=== PATIENT | male | born 1960 | race Caucasian/White ===

== ENCOUNTER 2023-10-02 12:00 | Inpatient (IN) | payer MEDICARE, MEDICAID ==
[~2023-10-02] VITALS: Ht 175.3 cm; Wt 85.4 kg
[2023-10-02 12:09] VITALS: BP_SYST 115; PULSE 99; RESP 17; TEMP 97.4; O2SAT 97
[2023-10-02] MEDS: ONDANSETRON 4 MG ODT TAB PO ONE (12:49)
[2023-10-02] MEDS: MORPHINE 2 MG/ML INJ. SYRINGE IM ONE (12:50)
[2023-10-02 13:32] LABS: BASOPHILS % (AUTO) 0.1 % (0.0-2.0); HEMATOCRIT 31.6 % (36-54); HEMOGLOBIN 9.2 g/dL (14.0-18.0); LYMPHOCYTES # (AUTO) 0.8 K/uL (1.0-5.5); LYMPHOCYTES % (AUTO) 3.9 % (20.5-51.5); MEAN CORPUSCULAR HEMOGLOBIN 19 pg (27-31); MEAN CORPUSCULAR HGB CONC 29 % (32-36); MEAN CORPUSCULAR VOLUME 66 fL (79.0-98.0); MONOCYTES # (AUTO) 0.9 K/uL (0.0-1.0); MONOCYTES % (AUTO) 4.5 % (1.7-9.3); NEUTROPHILS # (AUTO) 18.7 K/uL (1.8-7.7); NEUTROPHILS % (AUTO) 91.5 % (40.0-70.0); PLATELET COUNT (AUTO) 261 K/uL (130-430); RED BLOOD CELL COUNT(AUTO) 4.79 MIL/uL (4.2-6.2); RED CELL DISTRIBUTION WIDTH 21.2 % (9.0-15.0); WHITE BLOOD COUNT (AUTO) 20.5 K/uL (4.8-10.8)
[2023-10-02 13:45] LABS: ALANINE AMINOTRANSFERASE 22 U/L (12-78); ALBUMIN 4.2 g/dL (3.4-4.8); ANION GAP 12 (5-15); ASPARTATE AMINOTRANSFERASE 23 U/L (10-37); CALCIUM 9.2 mg/dL (8.4-11.0); CARBON DIOXIDE 24 mmol/L (23-29); CHLORIDE 105 mmol/L (98-107); CREATININE 0.79 mg/dL (0.55-1.30); GFR AFRICAN AMERICAN 127 mL/min (>90); GFR NON AFRICAN-AMERICAN 105 mL/min (>90); GLUCOSE 151 mg/dL (74-106); POTASSIUM 4.1 mmol/L (3.5-5.1); PROTHROMBIN TIME 10.7 SECS (9.5-12.5); SODIUM SERUM 141 mmol/L (136-145); TOTAL BILIRUBIN 0.9 mg/dL (0.0-1.0); TOTAL PROTEIN, SERUM 7.3 g/dL (6.4-8.3); UREA NITROGEN, BLOOD 21 mg/dL (8-21)
[2023-10-02 13:48] LABS: BILIRUBIN,DIRECT 0.2 mg/dL (0.0-0.3); CREATINE KINASE, TOTAL 86 U/L (39-308)
[2023-10-02 14:07] LABS: ANISOCYTOSIS 2+; HYPOCHROMASIA 1+; OVALOCYTES FEW
[2023-10-02] MEDS: cefTRIAXone 1 GM IVPB PREMIX 50 ML IV SCH (14:50)
[2023-10-02 15:06] LABS: BILIRUBIN,URINE NEGATIVE (NEGATIVE); BLOOD, URINE NEGATIVE (NEGATIVE); CLARITY/URINE CLEAR (CLEAR); COLOR,URINE YELLOW (YELLOW); GLUCOSE,URINE 3+ (NEGATIVE); KETONES,URINE 3+ (NEGATIVE); LEUKOCYTE ESTERASE ,URINE NEGATIVE (NEGATIVE); NITRITE, URINE NEGATIVE (NEGATIVE); PROTEIN URINE NEGATIVE (NEGATIVE); UROBILINOGEN,URINE 0.2 (0.2-1.0)
[2023-10-02] MEDS ORDERED: PRO40 PO (15:09)
[2023-10-02] MEDS ORDERED: METO25TA3 PO (15:09)
[2023-10-02] MEDS ORDERED: CLOP75TA32 PO (15:09)
[2023-10-02] MEDS ORDERED: METF-1069 PO (15:09)
[2023-10-02] MEDS ORDERED: LIP80 PO (15:09)
[2023-10-02] MEDS ORDERED: NEU300 PO (15:09)
[2023-10-02 15:40] LABS: BACTERIA,URINE RARE /HPF (None Seen); MUCUS,URINE None Seen /LPF (None Seen); RBC,URINE NONE SEEN /HPF (0-3); WBC,URINE 0-3 /HPF (0-3)
[2023-10-02 15:41] LABS: COARSE GRANULAR CASTS,URINE 0-10 /LPF (None Seen)
[2023-10-02 15:45] VITALS: BP_SYST 129; PULSE 81; RESP 16; TEMP 99.1
[2023-10-02] MEDS ORDERED: HYDROcodone/ACETAMIN 5-325 MG TAB (NORCO/ VICODIN) PO PRN (16:30)
[2023-10-02] MEDS ORDERED: INSULIN REGULAR, HUMAN 100 UNITS/ML, 3 ML VIAL (humuLIN R) SUBCUT PRN (16:30)
[2023-10-02] MEDS ORDERED: ACETAMINOPHEN 325 MG TABLET PO PRN ×2 (16:30→16:45)
[2023-10-02 17:12] VITALS: BP_SYST 128; PULSE 81; RESP 15; TEMP 99.1; O2SAT 98
[2023-10-02] MEDS: HYDROcodone/ACETAMIN 10-325 MG TAB PO PRN (17:24)
[2023-10-02] MEDS: PIPERACILLIN/TAZO 3.375 GM in D5W 50 ML IV ONE (17:36)
[2023-10-02 21:28] VITALS: BP_SYST 103; PULSE 87; RESP 18; TEMP 97.6; O2SAT 97
[2023-10-02] MEDS: MORPHINE 2 MG/ML INJ. SYRINGE IVP PRN (22:03)
[2023-10-03 00:08] VITALS: BP_SYST 122; PULSE 78; RESP 17; TEMP 98.2; O2SAT 96
[2023-10-03] MEDS: PIPERACILLIN/TAZO 3.375 GM in D5W 50 ML IV SCH (06:17)
[2023-10-03 08:01] VITALS: BP_SYST 124; PULSE 81; RESP 18; TEMP 98.3; O2SAT 99
[2023-10-03 08:05] VITALS: O2SAT 99
[2023-10-03 08:17] LABS: BASOPHILS % (AUTO) 0.4 % (0.0-2.0); EOSINOPHILS % (AUTO) 0.2 % (0.0-4.0); HEMATOCRIT 26.2 % (36-54); HEMOGLOBIN 7.8 g/dL (14.0-18.0); LYMPHOCYTES # (AUTO) 0.8 K/uL (1.0-5.5); LYMPHOCYTES % (AUTO) 8.4 % (20.5-51.5); MEAN CORPUSCULAR HEMOGLOBIN 20 pg (27-31); MEAN CORPUSCULAR HGB CONC 30 % (32-36); MEAN CORPUSCULAR VOLUME 66 fL (79.0-98.0); MONOCYTES # (AUTO) 0.8 K/uL (0.0-1.0); MONOCYTES % (AUTO) 8.5 % (1.7-9.3); NEUTROPHILS # (AUTO) 7.5 K/uL (1.8-7.7); NEUTROPHILS % (AUTO) 82.5 % (40.0-70.0); PLATELET COUNT (AUTO) 197 K/uL (130-430); RED BLOOD CELL COUNT(AUTO) 3.97 MIL/uL (4.2-6.2); WHITE BLOOD COUNT (AUTO) 9.1 K/uL (4.8-10.8)
[2023-10-03 08:19] LABS: RED CELL DISTRIBUTION WIDTH 21.3 % (9.0-15.0)
[2023-10-03] MEDS: GABAPENTIN 300 MG CAPSULE PO SCH (08:36)
[2023-10-03] MEDS: PANTOPRAZOLE SODIUM 40 MG TAB PO SCH (08:37)
[2023-10-03] MEDS: METOPROLOL SUCCINATE 25 MG TAB.SR.24H (TOPROL XL) PO SCH (08:37)
[2023-10-03] MEDS: CLOPIDOGREL BISULFATE 75 MG TABLET PO SCH (08:37)
[2023-10-03 09:01] LABS: ALBUMIN 3.6 g/dL (3.4-4.8); CALCIUM 8.6 mg/dL (8.4-11.0); CREATININE 0.62 mg/dL (0.55-1.30); PHOSPHORUS 3.1 mg/dL (2.7-4.5); POTASSIUM 3.8 mmol/L (3.5-5.1); TOTAL BILIRUBIN 0.8 mg/dL (0.0-1.0); TOTAL PROTEIN, SERUM 6.4 g/dL (6.4-8.3)
[2023-10-03 10:57] LABS: TOTAL IRON BIND. CAPACITY 371 ug/dL (250-450)
[2023-10-03 11:10] VITALS: BP_SYST 128; PULSE 84; RESP 18; TEMP 98.4; O2SAT 99
[2023-10-03] MEDS: LORATADINE 10 MG TABLET PO ONE (13:50)
[2023-10-03] MEDS: SOD FERRIC GLUC COMPLEX/SUC 125 MG in NS 100 ML IV SCH (14:48)
[2023-10-03 16:17] VITALS: BP_SYST 126; PULSE 80; RESP 18; TEMP 98.4; O2SAT 98
[2023-10-03 18:25] LABS: HEMATOCRIT 25.7 % (36-54)
[2023-10-03 20:00] VITALS: BP_SYST 119; PULSE 84; RESP 18; TEMP 98.4; O2SAT 94
[2023-10-03] MEDS: ATORVASTATIN 20 MG TABLET PO SCH (20:51)
[2023-10-03] MEDS: LORazepam 2 MG/ML VIAL IVP PRN (23:47)
[2023-10-04 00:13] VITALS: BP_SYST 116; PULSE 81; RESP 18; TEMP 97.9; O2SAT 93
[2023-10-04 06:24] LABS: BASOPHILS % (AUTO) 0.4 % (0.0-2.0); EOSINOPHILS # (AUTO) 0.1 K/uL (0.0-0.4); EOSINOPHILS % (AUTO) 1.1 % (0.0-4.0); HEMATOCRIT 25.4 % (36-54); HEMOGLOBIN 7.7 g/dL (14.0-18.0); LYMPHOCYTES % (AUTO) 11.8 % (20.5-51.5); MEAN CORPUSCULAR HEMOGLOBIN 20 pg (27-31); MEAN CORPUSCULAR HGB CONC 30 % (32-36); MEAN CORPUSCULAR VOLUME 66 fL (79.0-98.0); MONOCYTES % (AUTO) 11.3 % (1.7-9.3); NEUTROPHILS # (AUTO) 6.4 K/uL (1.8-7.7); NEUTROPHILS % (AUTO) 75.4 % (40.0-70.0); PLATELET COUNT (AUTO) 205 K/uL (130-430); RED BLOOD CELL COUNT(AUTO) 3.89 MIL/uL (4.2-6.2); RED CELL DISTRIBUTION WIDTH 20.6 % (9.0-15.0); WHITE BLOOD COUNT (AUTO) 8.5 K/uL (4.8-10.8)
[2023-10-04 06:55] LABS: ALBUMIN 3.5 g/dL (3.4-4.8); CALCIUM 8.6 mg/dL (8.4-11.0); CREATININE 0.63 mg/dL (0.55-1.30); POTASSIUM 3.3 mmol/L (3.5-5.1); TOTAL BILIRUBIN 0.7 mg/dL (0.0-1.0); TOTAL PROTEIN, SERUM 6.4 g/dL (6.4-8.3)
[2023-10-04 07:22] LABS: HEMOGLOBIN A1C 6.4 % (<5.7)
[2023-10-04 08:04] VITALS: O2SAT 98
[2023-10-04 08:05] VITALS: BP_SYST 127; PULSE 84; RESP 14; TEMP 97.9; O2SAT 97
[2023-10-04] MEDS: LORATADINE 10 MG TABLET PO SCH (08:19)
[2023-10-04 11:13] VITALS: BP_SYST 116; PULSE 83; RESP 16; TEMP 97.5; O2SAT 94
[2023-10-04] MEDS: MUPIROCIN 2% TOPICAL OINTMENT 22 GM TP ONE (11:37)
[2023-10-04] MEDS: MUPIROCIN 2% TOPICAL OINTMENT 22 GM TP SCH (14:38)
[2023-10-04 16:05] VITALS: BP_SYST 115; PULSE 80; RESP 16; TEMP 98; O2SAT 95
[2023-10-04 20:00] VITALS: O2SAT 95
[2023-10-04] MEDS ORDERED: MUPIROCIN 1 GM OIN.PF.APP NS SCH (21:00)
[2023-10-05 01:06] VITALS: BP_SYST 124; PULSE 85; RESP 18; TEMP 98.6; O2SAT 93
[2023-10-05 11:12] VITALS: BP_SYST 123; PULSE 89; RESP 16; TEMP 97.5
[2023-10-05 12:17] LABS: BASOPHILS % (AUTO) 0.5 % (0.0-2.0); EOSINOPHILS # (AUTO) 0.1 K/uL (0.0-0.4); EOSINOPHILS % (AUTO) 1.2 % (0.0-4.0); HEMATOCRIT 30.8 % (36-54); HEMOGLOBIN 9.2 g/dL (14.0-18.0); LYMPHOCYTES % (AUTO) 12.7 % (20.5-51.5); MEAN CORPUSCULAR HEMOGLOBIN 20 pg (27-31); MEAN CORPUSCULAR HGB CONC 30 % (32-36); MEAN CORPUSCULAR VOLUME 66 fL (79.0-98.0); MONOCYTES # (AUTO) 1.1 K/uL (0.0-1.0); MONOCYTES % (AUTO) 13.2 % (1.7-9.3); NEUTROPHILS # (AUTO) 5.8 K/uL (1.8-7.7); NEUTROPHILS % (AUTO) 72.4 % (40.0-70.0); PLATELET COUNT (AUTO) 278 K/uL (130-430); RED BLOOD CELL COUNT(AUTO) 4.65 MIL/uL (4.2-6.2); RED CELL DISTRIBUTION WIDTH 20.9 % (9.0-15.0); WHITE BLOOD COUNT (AUTO) 8.1 K/uL (4.8-10.8)
[2023-10-05 12:36] LABS: ALBUMIN 3.9 g/dL (3.4-4.8); CALCIUM 9.3 mg/dL (8.4-11.0); CREATININE 0.68 mg/dL (0.55-1.30); POTASSIUM 3.1 mmol/L (3.5-5.1); TOTAL BILIRUBIN 0.7 mg/dL (0.0-1.0); TOTAL PROTEIN, SERUM 7.4 g/dL (6.4-8.3)
[2023-10-05] MEDS: POTASSIUM CHLORIDE 20 MEQ TABLET.ER PO ONE (16:08)
[2023-10-05 16:59] VITALS: BP_SYST 116; PULSE 98; RESP 16; TEMP 98; O2SAT 97
[2023-10-05 19:30] VITALS: BP_SYST 115; PULSE 106; RESP 20; TEMP 99; O2SAT 95
[2023-10-05 21:04] VITALS: O2SAT 95
[2023-10-05] MEDS: GOLYTELY / COLYTE SOLUTION 4 LITERS PO ONE (22:36)
[2023-10-05] MEDS ORDERED: GOLYTELY / COLYTE SOLUTION 4 LITERS ONE (22:46)
[2023-10-06] VITALS (7 sets, daily range): BP systolic 124–136; PULSE 83–96; RESP 16–20; TEMP 96.7–97.6; O2SAT 95–97
[2023-10-06] MEDS: GOLYTELY / COLYTE SOLUTION 4 LITERS PO ONE (03:00)
[2023-10-06 06:41] LABS: BASOPHILS % (AUTO) 0.4 % (0.0-2.0); EOSINOPHILS # (AUTO) 0.1 K/uL (0.0-0.4); EOSINOPHILS % (AUTO) 1.1 % (0.0-4.0); HEMOGLOBIN 9.8 g/dL (14.0-18.0); LYMPHOCYTES # (AUTO) 1.5 K/uL (1.0-5.5); LYMPHOCYTES % (AUTO) 15.4 % (20.5-51.5); MEAN CORPUSCULAR HEMOGLOBIN 20 pg (27-31); MEAN CORPUSCULAR HGB CONC 31 % (32-36); MEAN CORPUSCULAR VOLUME 67 fL (79.0-98.0); MONOCYTES % (AUTO) 10.9 % (1.7-9.3); NEUTROPHILS # (AUTO) 6.8 K/uL (1.8-7.7); NEUTROPHILS % (AUTO) 72.2 % (40.0-70.0); PLATELET COUNT (AUTO) 278 K/uL (130-430); RED CELL DISTRIBUTION WIDTH 21.2 % (9.0-15.0); WHITE BLOOD COUNT (AUTO) 9.5 K/uL (4.8-10.8)
[2023-10-06 06:57] LABS: ALBUMIN 3.8 g/dL (3.4-4.8); CALCIUM 9.5 mg/dL (8.4-11.0); CREATININE 0.64 mg/dL (0.55-1.30); POTASSIUM 3.5 mmol/L (3.5-5.1); TOTAL BILIRUBIN 0.8 mg/dL (0.0-1.0); TOTAL PROTEIN, SERUM 7.3 g/dL (6.4-8.3)
[2023-10-07] VITALS (7 sets, daily range): BP systolic 128–137; PULSE 85–91; RESP 16–20; TEMP 96.3–97.5; O2SAT 95–100
[2023-10-07 06:56] LABS: BASOPHILS % (AUTO) 0.5 % (0.0-2.0); EOSINOPHILS # (AUTO) 0.2 K/uL (0.0-0.4); EOSINOPHILS % (AUTO) 1.8 % (0.0-4.0); HEMATOCRIT 31.1 % (36-54); HEMOGLOBIN 9.3 g/dL (14.0-18.0); LYMPHOCYTES # (AUTO) 1.4 K/uL (1.0-5.5); LYMPHOCYTES % (AUTO) 16.5 % (20.5-51.5); MEAN CORPUSCULAR HEMOGLOBIN 20 pg (27-31); MEAN CORPUSCULAR HGB CONC 30 % (32-36); MEAN CORPUSCULAR VOLUME 68 fL (79.0-98.0); MONOCYTES # (AUTO) 0.9 K/uL (0.0-1.0); NEUTROPHILS # (AUTO) 6.1 K/uL (1.8-7.7); NEUTROPHILS % (AUTO) 71.2 % (40.0-70.0); PLATELET COUNT (AUTO) 289 K/uL (130-430); RED BLOOD CELL COUNT(AUTO) 4.59 MIL/uL (4.2-6.2); RED CELL DISTRIBUTION WIDTH 20.9 % (9.0-15.0); WHITE BLOOD COUNT (AUTO) 8.6 K/uL (4.8-10.8)
[2023-10-07 07:00] LABS: ALBUMIN 3.6 g/dL (3.4-4.8); CALCIUM 9.4 mg/dL (8.4-11.0); CREATININE 0.62 mg/dL (0.55-1.30); POTASSIUM 3.5 mmol/L (3.5-5.1); TOTAL BILIRUBIN 0.8 mg/dL (0.0-1.0); TOTAL PROTEIN, SERUM 6.8 g/dL (6.4-8.3)
[2023-10-07] MEDS: ONDANSETRON HCL 4 MG/2 ML VIAL IM PRN (10:09)
[2023-10-07] MEDS ORDERED: HYDR-3919 PO (15:17)
[2023-10-07] MEDS ORDERED: CELE200C PO (15:46)
== END 2023-10-07 19:05 | DRG 378 ==
LOC: SED 12:00 → STU 14:06 → SMU 10-05 22:51
PROVIDERS: ADMIT Specialist; ATTEND Specialist
PROC: 4A00X4Z Measurement of Central Nervous Electrical Activity, External Approach (ICD-10-PCS; principal; 2023-10-04)
DX: K92.2 Gastrointestinal hemorrhage, unspecified (principal); D62 Acute posthemorrhagic anemia; S22.088A Other fracture of T11-T12 vertebra, initial encounter for closed fracture; I10 Essential (primary) hypertension; I25.10 Atherosclerotic heart disease of native coronary artery without angina pectoris; E78.5 Hyperlipidemia, unspecified; E11.9 Type 2 diabetes mellitus without complications; W18.39XA Other fall on same level, initial encounter; Z95.5 Presence of coronary angioplasty implant and graft; Z79.899 Other long term (current) drug therapy; Z79.84 Long term (current) use of oral hypoglycemic drugs; Y93.89 Activity, other specified; Y92.89 Other specified places as the place of occurrence of the external cause; Y99.8 Other external cause status
CPT/HCPCS: 36415; 70450-TC; 71045; 72131; 72146; 80048; 80053; 80076; 81000; 81001; 81015; 82550; 82948; 83037; 83540; 83550; 83605; 83735; 84100; 84484; 85018; 85025; 85610; 85730; 87040; 87081; 93005; 93306; 93880; 95816; 96365; 96375; 97110-GP; 97116-GP; 97530-GP; 97760-GP; 99291; G0378; J0696; J2060; J2270; J2405; J2543; J2916; J7060; Q0162